=== PATIENT | female | born 1980 | race Caucasian/White ===

== ENCOUNTER 2016-10-11 10:50 | Emergency (ER) | payer OTHER ==
[~2016-10-11 10:50] MED LIST: FLUO20CA38 PO; RISP2TAB3 PO
== END 2016-10-11 12:28 | disposition left against medical advice (07) ==
LOC: E/R 10:50
DX: Z53.21 Procedure and treatment not carried out due to patient leaving prior to being seen by health care provider (principal)

== ENCOUNTER 2016-10-14 09:06 | Emergency (ER) | payer OTHER ==
[~2016-10-14] VITALS: Ht 167.6 cm; Wt 103.0 kg
[2016-10-14 09:10] VITALS: Ht 167.6 cm; Wt 103.0 kg
--- NOTE | 2016-10-14 09:41 | ERD ---
ER Documentation Chief Complaint Date/Time DATE: 10/14/16 TIME: 09:36 Chief Complaint sore throat and right ear pain x 1 week HPI The patient is a 36-year-old female here with a one-week complaint of right ear pain and right-sided throat pain. She states that her throat feels thick with mucus, and she has some difficulty swallowing. However, she is able to swallow. She denies respiratory distress, difficulty breathing, chest pain, recent illness, congestion, or any cold or flulike symptoms. She states that she has a history of "swollen adenoids "and has had to get them "drained" in the past. ROS All systems reviewed and are negative except as per history of present illness. Medications Home Meds Active Scripts Amoxicillin* (Amoxicillin*) 500 Mg Cap, 500 MG PO TID for 10 Days, CAP Prov:JANNET AVILES, PARATRANSIT OPERATOR 10/14/16 Acetaminophen* (Tylenol*) 325 Mg Tablet, 2 TAB PO Q6 Y for PAIN AND OR ELEVATED TEMP, #20 TAB Prov:JANNET AVILES, PARATRANSIT OPERATOR 10/14/16 Reported Medications Risperidone* (Risperidone*) 2 Mg Tablet, 2 MG PO BID, TAB 05/13/16 Fluoxetine Hcl* (Prozac*) 20 Mg Capsule, 60 MG PO DAILY, CAP 05/13/16 Allergies Allergies: Coded Allergies: No Known Drug Allergies (Verified Allergy, Mild, 05/13/16) PMhx/Soc History of Surgery: Yes (c/section x3) Anesthesia Reaction: No Hx Neurological Disorder: Yes (SEIZURE) Hx Respiratory Disorders: Yes (asthma) Hx Cardiac Disorders: No Hx Psychiatric Problems: Yes (schizoprenia, ANXIETY) Hx Miscellaneous Medical Probl: No Hx Alcohol Use: Yes (OCCASIONAL) Hx Substance Use: Yes (METH) Hx Tobacco Use: Yes Smoking Status: Current every day smoker Physical Exam Vitals Vital Signs Date Time Temp Pulse Resp B/P Pulse Ox O2 Delivery O2 Flow Rate FiO2 10/14/16 10:24 99 10/14/16 09:10 98.0 110 18 134/80 97 Physical Exam INITIAL VITAL SIGNS: Reviewed by me, mild tachycardia, oximetry 97% on room air GENERAL: Alert. Well developed and well nourished. No respiratory distress HEAD: Head is normocephalic. Atraumatic. EYES: EOMI. No scleral icterus. No conjunctival injection. ENT: + Throat erythematous, large right-sided peritonsillar abscess visualized. Airway patent. External ears, nose, and mouth normal. Ear canals clear bilaterally and without erythema or purulence. Tympanic membranes clear, positive light reflex, no injection, no erythema, no effusion, no bulging. Nasal passages patent and without rhinorrhea. Moist mucous membranes. NECK: Supple. Full range of motion. Trachea midline. RESPIRATORY: No tachypnea. Clear to auscultation bilaterally. No wheezing, rales , or rhonchi. CV: Regular rate and rhythm. No murmurs, rubs, or gallops ABDOMEN: Soft, non-distended, non-tender. No guarding. No rebound. No masses. Bowel sounds normal in all quadrants. BACK: No CVA tenderness. Full ROM. EXTREMITIES: No obvious deformity. No clubbing or cyanosis. No edema. SKIN: Warm and dry. No diaphoresis. No obvious rashes or lesions. NEUROLOGIC: Alert and oriented x 3. Appropriate. Face is symmetric. Speech is normal. Moves all extremities equally. Results 24 hrs Current Medications Medications (Trade) Dose Ordered Sig/Lana Route PRN Reason Start Time Stop Time Status Last Admin Dose Admin Acetaminophen (Tylenol Tab) 1,000 mg ONCE STAT PO 10/14/16 09:50 10/14/16 09:51 DC 10/14/16 09:55 Procedures/MDM Nursing Notes Reviewed Previous Medical Records requested via [facility]. EMERGENCY DEPARTMENT COURSE / MEDICAL DECISION MAKING: The patient comes to the ED secondary to right ear pain and right-sided throat pain 1 week. Differential diagnosis upon initial evaluation includes but is not limited to:, Cold, flu, strep throat, peritonsillar abscess, otitis media, otitis externa, and others. The case was discussed with supervising physician Dr. Bonilla, who saw and examined the patient at bedside. Final impression: Right-sided peritonsillar abscess Dr. Bonilla called and spoke to the ENT doctor exploration driller, Dr. Shaun Mejias. Dr. Mejias stated that he can see the patient immediately after discharge from the emergency department in his office for further evaluation and possible drainage. The patient was instructed of this, and verbalized understanding and agreed. Based on patient's history of present illness and physical examination the decision was made to discharge. There is no evidence of life threatening injuries or illnesses at this time. There is no evidence of respiratory distress, or airway obstruction at this time. Her tachycardia resolved prior to discharge from the emergency department. Her heart rate on discharge was 99 bpm. On re-examination, patient resting in no distress, stable vital signs, reports feeling safe for discharge with ENT follow-up immediately after discharge from the emergency department. Patient given return precautions. She verbalized understanding and agreed to return precautions. All of her questions and concerns were addressed prior to discharge. She agrees with the plan of care. Patient's blood pressure was elevated but appears stable without evidence of hypertensive emergency, end organ damage, chest pain or shortness of breath. The patient was counseled about the risks of untreated hypertension and urged to pursue outpatient monitoring and therapy in 2-3 days with their primary care physician. Prescription Amoxicillin Tylenol Departure Diagnosis: Primary Impression: Peritonsillar abscess Condition: Stable JANNET AVILES NP Oct 14, 2016 09:41
[2016-10-14] MEDS ORDERED: ACETAMINOPHEN 500 MG TAB PO STA (09:50)
[2016-10-14] MEDS ORDERED: ACET325T33 PO (10:17)
[2016-10-14] MEDS ORDERED: AMO500 PO (10:20)
[2016-10-14 10:24] VITALS: PULSE 99
== END 2016-10-14 10:25 | disposition home or self-care (01) ==
LOC: FTE 09:06
DX: J36 Peritonsillar abscess (principal); J45.909 Unspecified asthma, uncomplicated; F17.210 Nicotine dependence, cigarettes, uncomplicated
CPT/HCPCS: Z7502; Z7610; 99283